=== PATIENT | male | born 1990 | race Caucasian/White ===

== ENCOUNTER 2016-04-06 05:36 | Day surgery (SDC) | payer OTHER ==
[~2016-04-06] VITALS: Ht 188 cm; Wt 67.1 kg
[~2016-04-06 05:36] MED LIST: ADDERALL15 MG PO; AMITIZA8 MICROGRA PO; BENTYL10 MG PO; BUSPIRONE HCL10 MG PO; CALCIUM 500 +1 EACH PO; CARAFATE1 GM PO; CYMBALTA60 MG PO; DAILY MULTIPLE1 EACH PO; DAILY VALUE1 EACH PO; DEPAKOTE500 MG PO; ENDOCET 5-3251 EACH PO; FLAGYL 375 MG375 MG PO; FLAGYL500 MG PO; FOLIC ACID1 MG PO; HYDROXYZINE PAM50 MG PO; LEXAPRO10 MG PO; LIBRAX, CLI1 CAPSULE PO; LORAZEPAM1 MG PO; METHYLPREDNISOLO4 M1 PO; MIRTAZAPINE45 MG PO; MULTIVITAMIN1 EAC2 PO; OLANZAPINE10 MG PO; PAROXETINE CR12.5 MG PO; PAXIL CR37.5 MG PO; PREVACID30 MG PO; REMICADE; REMICADE10 MG/ML IV; SLOW RELEASE I160 MG PO; TAMSULOSIN HCL0.4 MG PO; TORADOL10 MG PO; TYLENOL WITH C1 EACH PO; VITAMIN D250000 UNIT PO; VITRON-C TABLE1 EACH PO
[2016-04-06 06:41] VITALS: BP 106/72
[2016-04-06 10:20] VITALS: BP 127/80
[2016-04-06 11:01] VITALS: BP 126/74
== END 2016-04-06 11:10 | disposition home or self-care (01) ==
LOC: SDC 05:36
PROC: 09QM3ZZ Repair Nasal Septum, Percutaneous Approach (ICD-10-PCS; principal; 2016-04-06)
DX: J34.2 Deviated nasal septum (principal); K50.90 Crohn's disease, unspecified, without complications; F41.9 Anxiety disorder, unspecified
CPT/HCPCS: J0330; J1100; J2250; J2405; J3010